=== PATIENT | female | born 1955 | race Caucasian/White ===

== ENCOUNTER → 2017-01-20 | Outpatient (CLI) | payer OTHER ==
[~2017-01-20] MED LIST: CENTRUM1 TAB PO; FISH OIL CONC1000 MG PO; HYDROCHLOR50 MG PO; MULTI VITAMINS1 TAB PO; OSCAL 500 TAB500 MG PO; PERCOCET 325 MG1 TA2 PO; VESICARE 5MG5 MG PO; VITAMIN D 1001000 IU PO
== END ==
LOC: MC.RAD 09:42
DX: Z12.31 Encounter for screening mammogram for malignant neoplasm of breast (principal)

== ENCOUNTER 2018-01-02 08:07 | Day surgery (SDC) | payer OTHER ==
[~2018-01-02] VITALS: Ht 174 cm; Wt 128.2 kg
[2018-01-02 08:27] VITALS: BP 159/92; PULSE 74; TEMP 98.2
[2018-01-02 09:55] VITALS: BP 145/89; PULSE 87; TEMP 98.3
[2018-01-02 10:10] VITALS: BP 137/79; PULSE 85
[2018-01-02 10:25] VITALS: BP 130/81; PULSE 83
== END 2018-01-02 10:40 | disposition home or self-care (01) ==
LOC: SDCO 08:07
DX: Z12.11 Encounter for screening for malignant neoplasm of colon (principal); K57.30 Diverticulosis of large intestine without perforation or abscess without bleeding
CPT/HCPCS: J2250; J3010; J7030

== ENCOUNTER → 2018-01-20 | Outpatient (CLI) | payer OTHER | LOC: MC.RAD 09:44 | DX: Z12.31 Encounter for screening mammogram for malignant neoplasm of breast (principal) ==

== ENCOUNTER → 2018-12-07 | Outpatient (CLI) | payer OTHER | LOC: COL.RAD 12:55 | DX: K44.9 Diaphragmatic hernia without obstruction or gangrene (principal) ==

== ENCOUNTER → 2020-07-03 | Outpatient (CLI) | payer OTHER | LOC: MC.RAD 11:08 | DX: Z12.31 Encounter for screening mammogram for malignant neoplasm of breast (principal) ==

== ENCOUNTER → 2021-08-21 | Outpatient (CLI) | payer MEDICARE, OTHER | LOC: MC.RAD 14:22 | DX: Z12.31 Encounter for screening mammogram for malignant neoplasm of breast (principal) ==

== ENCOUNTER → 2023-11-25 | Outpatient (CLI) | payer MEDICARE, OTHER | LOC: MC.RAD 11:02 | DX: Z12.31 Encounter for screening mammogram for malignant neoplasm of breast (principal) ==